=== PATIENT | female | born 2000 | race African-American/Black ===

== ENCOUNTER 2020-01-24 10:23 | Emergency (ER) | payer SELFPAY ==
[2020-01-24 10:28] VITALS: BP 117/68
--- NOTE | 2020-01-24 10:35 | ER Document Report ---
ED Medical Screen (RME) - General Chief Complaint: Abdominal Pain Stated Complaint: ABDOMINAL PAIN Time Seen by Provider: 01/24/20 10:31 Notes: Patient is a 19-year-old female G2, P1 who presents emergency department with a chief complaint of lower abdominal pain. Patient reports her last menstrual cycle was on December 20. Patient reports she did have 2+ home test. Patient reports over the past 2 days having lower abdominal pain that feels like a sharp shooting sensation that goes into the vagina. Denies vaginal bleeding or discharge. Denies urinary symptoms. Denies nausea, vomiting or diarrhea. Denies fever. - Related Data Allergies/Adverse Reactions: mushroom Allergy (Verified 01/24/20 10:31) Past Medical History - Social History Chew tobacco use (# tins/day): No Frequency of alcohol use: None Drug Abuse: Marijuana Physical Exam - Vital signs Vitals: Temp Pulse Resp BP Pulse Ox 98.6 F 90 12 117/68 99 01/24/20 10:27 01/24/20 10:01/24/20 10:01/24/20 10:01/24/20 10:27 Course - Re-evaluation Re-evalutation: 01/24/20 10:34 Patient sitting upright in triage in no acute distress. Will obtain blood work, urinalysis as well as an ultrasound. Patient to be thoroughly evaluated by physician in the main ER. I have greeted and performed a rapid initial assessment of this patient. A comprehensive ED assessment and evaluation of the patient, analysis of test results and completion of the medical decision making process will be conducted by additional ED providers. - Vital Signs Vital signs: Temp Pulse Resp BP Pulse Ox 98.6 F 90 12 117/68 99 01/24/20 10:29 01/24/20 10:27 01/24/20 10:27 01/24/20 10:27 01/24/20 10:27
[2020-01-24 10:58] LABS: ABSOLUTE EOSINOPHILS # (AUTO) 0.1 10^3/uL (0.0-0.6); ABSOLUTE LYMPHOCYTES (AUTO) 1.6 10^3/uL (0.5-4.7); ABSOLUTE MONOCYTES (AUTO) 0.5 10^3/uL (0.1-1.4); ABSOLUTE NEUT (AUTO) 4.3 10^3/uL (1.7-8.2); BASOPHILS % (AUTO) 0.4 % (0-2); EOSINOPHILS % (AUTO) 0.9 % (0-6); HEMATOCRIT 37.4 % (36.0-47.0); HEMOGLOBIN 13.1 g/dL (12.0-15.5); LYMPHOCYTES % (AUTO) 24.9 % (13-45); MEAN CORPUSCULAR HEMOGLOBIN 30.1 pg (27.0-33.4); MEAN CORPUSCULAR VOLUME 86 fl (80-97); MONOCYTES % (AUTO) 7.3 % (3-13); PLATELET COUNT 266 10^3/uL (150-450); RED BLOOD COUNT 4.35 10^6/uL (3.72-5.28); RED CELL DISTRIBUTION WIDTH 14.7 % (11.5-14.0); SEGMENTED NEUTROPHILS % (AUTO) 66.5 % (42-78); TOTAL CELLS COUNTED % (AUTO) 100 %; WHITE BLOOD COUNT 6.5 10^3/uL (4.0-10.5)
[2020-01-24 11:02] LABS: APPEARANCE,URINE SLIGHTLY-CLOUDY; BILIRUBIN,URINE NEGATIVE (NEGATIVE); COLOR,URINE YELLOW; GLUCOSE, URINE NEGATIVE (NEGATIVE); KETONES,URINE NEGATIVE (NEGATIVE); LEUKOCYTE ESTERASE,URINE TRACE (NEGATIVE); NITRITE,URINE NEGATIVE (NEGATIVE); PROTEIN,URINE NEGATIVE (NEGATIVE); URINE SPECIFIC GRAVITY 1.023; UROBILINOGEN,URINE NEGATIVE mg/dL (<2.0)
[2020-01-24 11:06] LABS: ALBUMIN 4.3 g/dL (3.5-5.0); ALKALINE PHOSPHATASE 57 U/L (38-126); ANION GAP 7 (5-19); ASPARTATE AMINO TRANSFERASE 19 U/L (14-36); BILIRUBIN,TOTAL 0.4 mg/dL (0.2-1.3); BLOOD UREA NITROGEN 9 mg/dL (7-20); CALCIUM 9.4 mg/dL (8.4-10.2); CARBON DIOXIDE 24 mmol/L (22-30); CHLORIDE 107 mmol/L (98-107); GLUCOSE 97 mg/dL (75-110); POTASSIUM 3.9 mmol/L (3.6-5.0); TOTAL PROTEIN 7.2 g/dL (6.3-8.2)
== END 2020-01-24 11:00 | disposition left against medical advice (07) ==
LOC: ER 10:23
DX: Z53.20 Procedure and treatment not carried out because of patient's decision for unspecified reasons (principal); R10.9 Unspecified abdominal pain; R10.30 Lower abdominal pain, unspecified
CPT/HCPCS: 36415; 80053; 81001; 84702; 85025; 99281; 99284

== ENCOUNTER 2020-01-28 15:21 | Emergency (ER) | payer SELFPAY ==
--- NOTE | 2020-01-28 16:16 | ER Document Report ---
ED Medical Screen (RME) - General Chief Complaint: Lower Abdominal Pain Stated Complaint: LOWER ABDOMINAL PAIN Time Seen by Provider: 01/28/20 16:07 Mode of Arrival: Ambulatory Information source: Patient Notes: This is a 19-year-old female who presented emergency room today with lower abdominal pain cramping spotting this morning she was here 4 days ago left prior to results coming back she had a confirmed test at that point of time she states that she took 2 tests at home 2 weeks ago which were positive. - Related Data Allergies/Adverse Reactions: mushroom Allergy (Verified 01/28/20 16:06) Past Medical History - Social History Frequency of alcohol use: None Drug Abuse: Marijuana Physical Exam - Vital signs Vitals: Temp Pulse Resp BP Pulse Ox 98.7 F 84 14 118/65 98 01/28/20 15:27 01/28/20 15:27 01/28/20 15:27 01/28/20 15:27 01/28/20 15:27 Course - Vital Signs Vital signs: Temp Pulse Resp BP Pulse Ox 98.7 F 84 14 118/65 98 01/28/20 16:06 01/28/20 15:27 01/28/20 15:27 01/28/20 15:27 01/28/20 15:27
[2020-01-28 16:51] LABS: ABSOLUTE EOSINOPHILS # (AUTO) 0.1 10^3/uL (0.0-0.6); ABSOLUTE LYMPHOCYTES (AUTO) 1.9 10^3/uL (0.5-4.7); ABSOLUTE MONOCYTES (AUTO) 0.3 10^3/uL (0.1-1.4); ABSOLUTE NEUT (AUTO) 4.2 10^3/uL (1.7-8.2); BASOPHILS % (AUTO) 0.5 % (0-2); EOSINOPHILS % (AUTO) 1.3 % (0-6); HEMATOCRIT 40.8 % (36.0-47.0); HEMOGLOBIN 14.1 g/dL (12.0-15.5); LYMPHOCYTES % (AUTO) 28.7 % (13-45); MEAN CORPUSCULAR HEMOGLOBIN 29.7 pg (27.0-33.4); MEAN CORPUSCULAR HGB CONC 34.4 g/dL (32.0-36.0); MEAN CORPUSCULAR VOLUME 86 fl (80-97); MONOCYTES % (AUTO) 5.1 % (3-13); PLATELET COUNT 273 10^3/uL (150-450); RED BLOOD COUNT 4.73 10^6/uL (3.72-5.28); RED CELL DISTRIBUTION WIDTH 14.5 % (11.5-14.0); SEGMENTED NEUTROPHILS % (AUTO) 64.4 % (42-78); TOTAL CELLS COUNTED % (AUTO) 100 %; WHITE BLOOD COUNT 6.6 10^3/uL (4.0-10.5)
[2020-01-28 16:56] LABS: APPEARANCE,URINE SLIGHTLY-CLOUDY; BILIRUBIN,URINE NEGATIVE (NEGATIVE); COLOR,URINE YELLOW; GLUCOSE, URINE NEGATIVE (NEGATIVE); KETONES,URINE TRACE mg/dL (NEGATIVE); LEUKOCYTE ESTERASE,URINE LARGE (NEGATIVE); NITRITE,URINE NEGATIVE (NEGATIVE); PROTEIN,URINE NEGATIVE (NEGATIVE); UROBILINOGEN,URINE NEGATIVE mg/dL (<2.0)
[2020-01-28 17:07] LABS: ALBUMIN 4.5 g/dL (3.5-5.0); ALKALINE PHOSPHATASE 62 U/L (38-126); ANION GAP 8 (5-19); ASPARTATE AMINO TRANSFERASE 21 U/L (14-36); BILIRUBIN,TOTAL 0.4 mg/dL (0.2-1.3); BLOOD UREA NITROGEN 13 mg/dL (7-20); CALCIUM 9.9 mg/dL (8.4-10.2); CARBON DIOXIDE 24 mmol/L (22-30); CHLORIDE 105 mmol/L (98-107); GLUCOSE 80 mg/dL (75-110); POTASSIUM 4.6 mmol/L (3.6-5.0); TOTAL PROTEIN 7.6 g/dL (6.3-8.2)
--- NOTE | 2020-01-28 17:19 | RADIOLOGY REPORT (SQ) ---
EXAM DESCRIPTION: U/S OB TRANSVAG W/DOPPLER IMAGES COMPLETED DATE/TIME: 01/28/2020 5:05 pm REASON FOR STUDY: pain COMPARISON: None. TECHNIQUE: Transvaginal static and realtime grayscale images acquired of the pelvis. Additional mack cted spectral and color Doppler images recorded. All images stored on PACs. bHCG: Not available. CLINICAL DATES: TERRI: 09/28/2020 EGA: 5 weeks 1 days LIMITATIONS: None. FINDINGS: FETUS: No evidence of pole. ULTRASOUND EGA: 5 weeks 2 days ULTRASOUND TERRI: 09/27/2020 GESTATIONAL SAC: 0.63 cm SUBCHORIONIC BLEED: 1.2 x 0.5 x 0.2 cm possible subchorionic bleed. SIZE OF BLEED: See above. UTERUS: The uterus measures 9.55.0 x 4.2 cm. No masses. No anomalies. CERVICAL LENGTH: 2.6 cm. Closed. RIGHT ADNEXA: The right ovary measures 4.3 x 3.9 x 2.3 cm. A 2.3 x 2.3 x 1.9 cm cyst may represent corpus luteal cyst. No adnexal free fluid. LEFT ADNEXA: The left ovary measures 1.9 x 2.4 x 1.5 cm. Normal ovary with normal vascular flow. No adnexal free fluid. No adnexal masses. FREE FLUID: Small to mild volume of free fluid in the posterior cul-de-sac. OTHER: No other significant finding. IMPRESSION: 1. No evidence of pole by ultrasound examination. Gestational sac size correlate s to EGA 5 weeks 2 days. Correlation with lab values and follow-up examination. 2. Please see above findings. TECHNICAL DOCUMENTATION: JOB ID: [id number] [employer]- All Rights Reserved rev-12/21 Reading location - IP/workstation name: [email or web address]
--- NOTE | 2020-01-28 18:57 | ER Document Report ---
ED General - General Chief Complaint: Lower Abdominal Pain Stated Complaint: LOWER ABDOMINAL PAIN Time Seen by Provider: 01/28/20 16:07 Mode of Arrival: Ambulatory Notes: 19-year-old female who is a G2, P1, LMP 12/23/2019 presents the emergency department stating that she took 2 tests over the past 2 weeks and they were both positive and since then she has been having some mild to moderate lower abdominal pain. States that she started having some spotting earlier today it lasted for 1 to 1-1/2 hours and then resolved. Denies any worsening in her pain. States that she was seen here earlier in the week but left before she could get her results. Not using any assistive reproductive technology. - Related Data Allergies/Adverse Reactions: mushroom Allergy (Verified 01/28/20 16:06) Past Medical History - General Information source: Patient - Social History Smoking Status: Never Smoker Frequency of alcohol use: None Drug Abuse: Marijuana - States she has stopped since getting . Family History: Reviewed & Not Pertinent Patient has homicidal ideation: No Review of Systems - Review of Systems Cardiovascular: No symptoms reported. denies: Chest pain, Syncope, Dizziness, L ightheaded Gastrointestinal: See HPI Female Genitourinary: See HPI -: Yes All other systems reviewed and negative Physical Exam - Vital signs Vitals: Temp Pulse Resp BP Pulse Ox 98.7 F 84 14 118/65 98 01/28/20 15:27 01/28/20 15:27 01/28/20 15:27 01/28/20 15:27 01/28/20 15:27 Interpretation: Normal - Notes Notes: GENERAL: Alert, interacts well. No acute distress. HEAD: Normocephalic, atraumatic EYES: Pupils equal, round and reactive to light, extraocular movements intact. ENT: Oral mucosa moist, tongue midline. NECK: Full range of motion, supple, trachea midline. LUNGS: Clear to auscultation bilaterally, no wheezes, rales or rhonchi, no respiratory distress. HEART: Regular rate and rhythm, no murmurs, gallops, rubs. ABDOMEN: Soft, nontender, nondistended, bowel sounds present in all 4 quadrants. EXTREMITIES: Moves all 4 extremities spontaneously, no edema. No cyanosis. NEUROLOGICAL: Alert and oriented x3, normal speech. PSYCH: Normal mood, normal affect. SKIN: Warm, Dry, normal turgor, no rashes or lesions noted. Course - Re-evaluation Re-evalutation: 01/28/20 18:53 CBC does not show any anemia, CMP grossly unremarkable, quantitative beta-hCG has continued to rise appropriately since the when it was 894, today is 3950. She is a positive so RhoGam is not indicated, urinalysis shows large leukocyte esterase but there are also sick squamous epithelial cells and only 8 WBCs, suspect contamination however I will send for culture and treat with Macrobid given the fact that she is having pain and the fact that she is . Transvaginal US 01/28/20 16:13 IMPRESSION: 1. No evidence of pole by ultrasound examination. Ges tational sac size correlates to EGA 5 weeks 2 days. Correlation with lab values and follow-up examination. 2. Please see above findings. Ultrasound also shows possible small subchorionic hemorrhage which would explain her bleeding. Discussed with patient the possibility of subchorionic hemorrhage causing the bleeding versus threatened miscarriage. Patient will be put on complete vaginal rest, follow-up with [facility] as an outpatient in the next week and return here for increasing bleeding, increasing pain or any new or concerning symptoms. - Vital Signs Vital signs: Temp Pulse Resp BP Pulse Ox 98.7 F 84 14 118/65 98 01/28/20 16:06 01/28/20 15:27 01/28/20 15:27 01/28/20 15:27 01/28/20 15:27 - Laboratory Result Diagrams: 01/28/20 16:16 01/28/20 16:16 Laboratory results interpreted by me: 01/28/20 01/28/20 01/28/20 16:16 16:16 16:16 RDW 14.5 H Sodium Beta HCG, Quant 3950.60 H Urine Ketones TRACE H Ur Leukocyte Esterase LARGE H 01/28/20 16:16 RDW Sodium 136.7 L Beta HCG, Quant Urine Ketones Ur Leukocyte Esterase Discharge - Discharge Clinical Impression: Threatened miscarriage in early , First trimester bleeding, Acute cystitis during in first trimester Subchorionic hematoma in first trimester Qualifiers: Fetus number: single or unspecified fetus Qualified Code(s): O41.8X10 - Other specified disorders of amniotic fluid and membranes, first trimester, not applicable or unspecified; O46.8X1 - Other antepartum hemorrhage, first trimester Condition: Stable Disposition: HOME, SELF-CARE Additional Instructions: Today we were able to see a gestational sac but not a pole. You are approximately 5 weeks and 2 days prolonged. We would not necessarily expect to see a pole at this point. Your quantitative beta hCG is rising a ppropriately. On the it was 8 994, today it is 3950. Your ultrasound did show small amount of bleeding around the fetus, this is called a subchorionic hemorrhage. This does increase your risk of having a miscarriage although most of these resolve on their own. You need to be on complete pelvic rest, this means no sex, nothing at all in the vagina. Please follow-up with [facility] as an outpatient sometime in the next 1 to 2 weeks. They will likely want to repeat an ultrasound to make sure the baby is growing appropriately and they may also want to repeat blood work. Your blood type is a positive so you did not need a RhoGam shot today. You do have signs of a very mild urinary tract infection, we have prescribed you Macrobid to help with your urinary tract infection. Please return to the emergency department for bright red vaginal bleeding that goes through more than 1 pad per hour, increasing pain, lightheadedness, fevers or any new or concerning symptoms. Prescriptions: Nitrofurantoin Monohyd/M-Cryst [Macrobid 100 mg Capsule] 100 mg PO BID #10 cap Referrals: [facility] [Provider Group] - Follow up in 1 week
[2020-01-28 19:19] VITALS: BP 101/63
== END 2020-01-28 19:18 | disposition home or self-care (01) ==
LOC: ER 15:21
DX: O20.0 Threatened abortion (principal); O41.8X10 Other specified disorders of amniotic fluid and membranes, first trimester, not applicable or unspecified; R10.30 Lower abdominal pain, unspecified; O23.11 Infections of bladder in pregnancy, first trimester; Z3A.01 Less than 8 weeks gestation of pregnancy
CPT/HCPCS: 36415; 76817; 80053; 81001; 84484; 84702; 85025; 86900; 86901; 87086; 93976; 99284

== ENCOUNTER 2020-06-16 20:10 | Outpatient (CLI) | payer MEDICAID ==
[2020-06-16] MEDS ORDERED: HYDROXYZINE PAMOATE 25 MG CAPSULE PO ONE (21:09)
[2020-06-16 21:15] LABS: APPEARANCE,URINE SLIGHTLY-CLOUDY; BILIRUBIN,URINE NEGATIVE (NEGATIVE); COLOR,URINE YELLOW; GLUCOSE, URINE NEGATIVE (NEGATIVE); KETONES,URINE NEGATIVE (NEGATIVE); LEUKOCYTE ESTERASE,URINE SMALL (NEGATIVE); NITRITE,URINE NEGATIVE (NEGATIVE); PROTEIN,URINE NEGATIVE (NEGATIVE); URINE SPECIFIC GRAVITY 1.027; UROBILINOGEN,URINE NEGATIVE mg/dL (<2.0)
[2020-06-16] MEDS ORDERED: LIDOCAINE 1% INJ-PF (10 MG/ML) 30 ML SDV INJ ONE ×2 (21:18→21:30)
[2020-06-16] MEDS ORDERED: CEFTRIAXONE INJ 500 MG VIAL IM ONE (21:18)
[2020-06-16 21:24] LABS: URINE AMPHETAMINES SCREEN NEGATIVE; URINE BARBITURATES SCREEN NEGATIVE; URINE BENZODIAZEPINES SCREEN NEGATIVE; URINE COCAINE SCREEN NEGATIVE; URINE MARIJUANA (THC) SCREEN NEGATIVE; URINE METHADONE SCREEN NEGATIVE; URINE PHENCYCLIDINE SCREEN NEGATIVE
[2020-06-16] MEDS ORDERED: CEFTRIAXONE INJ 1000 MG VIAL ONE (21:24)
[2020-06-16] MEDS ORDERED: HYDROXYZINE PAMOATE 50 MG CAPSULE ONE (21:25)
[2020-06-16] MEDS ORDERED: LIDOCAINE 1% INJ-PF (10 MG/ML) 30 ML SDV ONE (21:25)
== END 2020-06-16 21:45 | disposition home or self-care (01) ==
LOC: LC 20:10
PROVIDERS: ATTEND Obstetrics & Gynecology
DX: O99.283 Endocrine, nutritional and metabolic diseases complicating pregnancy, third trimester (principal); O23.42 Unspecified infection of urinary tract in pregnancy, second trimester; E86.0 Dehydration; Z3A.24 24 weeks gestation of pregnancy
CPT/HCPCS: 81001; 80307; J3490 ×2; J0696

== ENCOUNTER 2020-07-15 21:44 | Outpatient (CLI) | payer MEDICAID ==
[2020-07-15 22:43] LABS: URINE AMPHETAMINES SCREEN NEGATIVE; URINE BARBITURATES SCREEN NEGATIVE; URINE BENZODIAZEPINES SCREEN NEGATIVE; URINE COCAINE SCREEN NEGATIVE; URINE MARIJUANA (THC) SCREEN NEGATIVE; URINE METHADONE SCREEN NEGATIVE; URINE PHENCYCLIDINE SCREEN NEGATIVE
[2020-07-15 22:45] LABS: APPEARANCE,URINE SLIGHTLY-CLOUDY; BILIRUBIN,URINE NEGATIVE (NEGATIVE); COLOR,URINE YELLOW; GLUCOSE, URINE 50 mg/dL (NEGATIVE); KETONES,URINE TRACE mg/dL (NEGATIVE); LEUKOCYTE ESTERASE,URINE SMALL (NEGATIVE); NITRITE,URINE NEGATIVE (NEGATIVE); PROTEIN,URINE 30 mg/dL (NEGATIVE); URINE SPECIFIC GRAVITY 1.039
[2020-07-15 22:54] LABS: BACTERIA (WET MOUNT) 4+ BACTERIA SEEN; EPITHELIALS (WET MOUNT) 4+ EPITHELIALS SEEN; RBCS (WET MOUNT) NO RBCS SEEN; T.VAGINALIS (WET MOUNT) NO TRICHOMONAS SEEN; WBCS (WET MOUNT) 2+ WBCS SEEN; YEAST (WET MOUNT) NO YEAST SEEN
--- NOTE | 2020-07-15 23:18 | L&D Progress Notes ---
PROGRESS NOTES Datetime Report Generated by CPN: 07/15/2020 23:18 PROGRESS NOTE Impression Other: concern with ruptured membranes Vital Signs : Reviewed Comment: fern is negative, unable to do actimprom because of gestational age. No contractions noted. We will let her go home to rest. LAST VAGINAL EXAM-NURSING Nursing Exam Contractions: Pt states not feeling contractions, none palpated. FETUS A FHR - Baseline: 135 Monitoring: External US Variability: Moderate 6-25bpm Decelerations: None FHR Category: Category I : 28.5 SIGNATURE SIGNATURE: [id number] Signature: with User ID: [email or web address]
== END 2020-07-15 23:13 | disposition home or self-care (01) ==
LOC: LC 21:44
PROVIDERS: ATTEND Obstetrics & Gynecology
DX: O99.283 Endocrine, nutritional and metabolic diseases complicating pregnancy, third trimester (principal); E86.0 Dehydration; Z3A.28 28 weeks gestation of pregnancy
CPT/HCPCS: 59899; 87210; 81001; 80307; Q0114

== ENCOUNTER → 2020-07-28 | Outpatient (CLI) | payer MEDICAID ==
--- NOTE | 2020-07-28 09:46 | ER RDC ASSESSMENT REPORT ---
Intake - In the Last 14 days Have you traveled outside [place]?: No Have you been in close contact with someone CONFIRMED: No Worked in Healthcare?: No - Symptoms Subjective Fever(Parlier feverish): No Chills: No Muscule Aches: No Runny Nose: No Sore Throat: No Cough (New or worsening chronic cough): No Shortness of breath: No Nausea or Vomiting: No Headache: Yes Abdominal Pain: No Diarrhea(3 or more loose stools in last 24 hours): No - Do you have any of the following Chronic lung disease: Asthma or emphysema or COPD: No Cystic Fibrosis: No Diabetes: No High Blood Pressure: No Cardiovascular Disease: No Chronic Kidney Disease: No Chronic Liver Disease: No Chronic blood disorder like Sickle Cell Disease: No Weak immune system due to disease or medication: No Neurologic condition that limits movement: No Developmental delay - Moderate to Severe: No Recent (within past 2 weeks) or current : Yes --If current: Trimester: 3rd - Objective Temperature: 98.8 F Pulse Rate: 72 Respiratory Rate: 15 Blood Pressure: 100/50 O2 Sat by Pulse Oximetry: 99 Objective: Given above, testing performed: Covid Disposition: Home; Selfcare General - General Stated Complaint: Headache Time Seen by Provider: 07/28/20 09:30 Mode of Arrival: Ambulatory Information source: Patient - HPI Notes: 19-year-old female presents to [facility] clinic for COVID-19 testing. Patient reports no known contact with Covid positive individual. Patient is currently 8 months . Patient reports onset of symptoms 1 to 2 days ago. She is only complaining of a headache but states this may be related to her . She denies any fever or chills, changes in taste or smell, GI upset, shortness of breath, fatigue, or muscle aches. - Related Data Allergies/Adverse Reactions: mushroom Allergy (Verified 07/15/20 21:58) Past Medical History - General Information source: Patient - Social History Smoking Status: Never Smoker Family History: Reviewed & Not Pertinent - Past Medical History Cardiac Medical History: Reports: None Pulmonary Medical History: Reports: None EENT Medical History: Reports: None Neurological Medical History: Reports: None Endocrine Medical History: Reports: None Renal/ Medical History: Reports: None Malignancy Medical History: Reports: None GI Medical History: Reports: None Musculoskeletal Medical History: Reports None Skin Medical History: Reports None Psychiatric Medical History: Reports: None Traumatic Medical History: Reports: None Infectious Medical History: Reports: None Past Surgical History: Reports: None Physical Exam - General General appearance: Appears well, Alert In distress: None Notes: PHYSICAL EXAMINATION: GENERAL: Well-appearing and in no acute distress. HEAD: Atraumatic, normocephalic. EYES: sclera anicteric, conjunctiva are normal. ENT: nares patent. Moist mucous membranes. NECK: Normal range of motion, supple without lymphadenopathy. LUNGS: No increased work of breathing. Lung sounds CTAB and equal. No wheezes rales or rhonchi. HEART: Regular rate and rhythm without murmurs. ABDOMEN: gravid uterus, nontender, normal bowel sounds, no guarding. EXTREMITIES: Normal range of motion, no pitting edema. No cyanosis. NEUROLOGICAL: A&O x 3. Normal speech. PSYCH: Normal mood, normal affect. SKIN: Warm, Dry, normal turgor, no rashes or lesions noted Patient Education/Counseling Counseling/Education: Patient presents with symptoms associated with possible Covid 19 infection. Patient does not have emergency worrying symptoms such as difficulty breathing, shortness of breath, chest pain, pressure, confusion or cyanosis. Patient appears suitable for discharge as vital signs are stable and patient is nontoxic in appearance. Good return precautions have been discussed with patient, pat ient verbalized understanding and is agreeable with discharge plan of care at this time. Guidance for worsening S/SX: As a person under investigation for Covid 19, the [place] department of Health and Human Services, division of public health advises you to adhere to the following guidance until your test results are reported to you. If your test result is positive, you will receive additional information from your provider and your local health department at that time. Remain at home until you are cleared by the health provider or public health authorities. Keep a log of visitors to your home, notify any visitors to your home of your isolation status. If you plan to move to a new address or leave the county, notify the local health department in your County. Call your doctor or seek care if you have an urgent medical need. Before seeking medical care, call ahead to get instructions from the provider before arriving at the medical office clinic or hospital. Notify them that you are being tested for the virus that causes Covid 19 so that arrangements can be made, as necessary, to prevent transmission to others in the healthcare setting. Next, notify the local health department in your county. If a medical emergency arises and you need to call 911, inform the first responders that you are being tested for the virus that causes Covid 19. Next, notify the local health department in your county. RDC Discharge - Discharge Clinical Impression: Encounter for screening laboratory testing for COVID-19 virus Condition: Good Disposition: Home; Selfcare
[2020-07-28 10:32] VITALS: BP 100/50
== END ==
LOC: RDC 09:22
PROVIDERS: ATTEND Registered Nurse
DX: O26.893 Other specified pregnancy related conditions, third trimester (principal); Z20.828 Contact with and (suspected) exposure to other viral communicable diseases; R51.9 Headache, unspecified; Z3A.39 39 weeks gestation of pregnancy; Z91.018 Allergy to other foods
CPT/HCPCS: 87635; 99201; 99211; C9803